=== PATIENT | female | born 1940 | race Caucasian/White ===

== ENCOUNTER → 2016-11-04 | Outpatient (CLI) | payer MEDICARE, BC ==
--- NOTE | 2016-11-04 14:03 | RAD ---
EXAM: Dual energy x-ray absorptiometry (DEXA). HISTORY: Post menopausal screening. TECHNIQUE: Dual energy x-ray absorptiometry of the lumbar spine and right hip was performed. Calculation of bone mineral density based on standard deviations above or below the expected young adult normal value (T-score) was completed. FINDINGS: The average bone mineral density associated with L1-L4 is 1.159 g/cm^2, corresponding with a T-score of -0.3. The average total bone mineral density associated with the right hip is 1.260 g/cm^2, corresponding with a T-score of 2.1. No comparison examinations are available. IMPRESSION: 1. Normal. Fracture risk is low. Note: Definitions established by the World Health Organization: 1. Normal: T-score is -1.0 or above the expected mean for a young adult. 2. Osteopenia: T-score is between -1.0 and -2.5. 3. Osteoporosis: T-score is -2.5 or below.
== END | disposition home or self-care (01) ==
LOC: DXRAD 13:18
PROVIDERS: ATTEND Physician Assistant Medical
DX: Z01.419 Encounter for gynecological examination (general) (routine) without abnormal findings (principal); Z78.0 Asymptomatic menopausal state
CPT/HCPCS: 77080

== ENCOUNTER → 2019-01-04 | Outpatient (CLI) | payer MEDICARE, BC ==
[~2019-01-04] MED LIST: HYOS0.1264 PO; ONDA4TAB7 PO
--- NOTE | 2019-01-04 16:15 | RAD ---
EXAM: Frontal view of the chest, AP views of the abdomen in upright and supine positions. CLINICAL INDICATION: Abdominal pain, left upper quadrant COMPARISON: None. FINDINGS and IMPRESSION: The heart is not enlarged. Mediastinal and hilar contours are normal. Aorta is tortuous. No focal parenchymal airspace opacity. No pleural effusion or pneumothorax. No abnormal small or large bowel dilatation. Moderate colonic stool content. No abnormal soft tissue mass effect. No suspicious calcifications are seen. No free intraperitoneal gas. Lumbar scoliosis. Atherosclerotic vascular calcifications are seen. Electronically signed by: Francisco Moreira MD (01/04/2019 4:12 PM) [facility]
== END | disposition home or self-care (01) ==
LOC: EDBD 08:29 → PMG 08:29
PROVIDERS: ATTEND Physician Assistant
DX: R10.12 Left upper quadrant pain (principal); M41.86 Other forms of scoliosis, lumbar region; I70.90 Unspecified atherosclerosis
CPT/HCPCS: 74022

== ENCOUNTER 2019-01-06 10:19 | Emergency (ER) | payer MEDICARE, BC ==
[2019-01-06] MEDS ORDERED: IV NORMAL SALINE 1,000ML 1,000 ML IV SCH (10:34)
[2019-01-06 10:35] VITALS: BP 145/78
--- NOTE | 2019-01-06 10:44 | PHYS DOC ---
Past History Past Medical History: High Cholesterol, Hypertension Past Surgical History: Hysterectomy, Other Additional Past Surgical Histo: vincent fundoplication Smoking: Non-smoker Alcohol Use: None Drug Use: None Adult General Chief Complaint Chief Complaint: NAUSEA/VOMITING/DIARRHEA HPI HPI Patient is a 78-year-old female that has been unable to tolerate any oral intake for the past 6 days. This includes both solids and liquids. She denies any diarrhea. She had a bowel movement last night as well as 6 days ago. No intervening bowel movements. No blood in the stool. No recent travel. No fever. She was seen 2 days ago by her primary care team and had an x-ray performed of her abdomen that was negative. Oral intake make symptoms worse.[] Review of Systems Review of Systems Constitutional: Denies fever or chills [] Eyes: Denies change in visual acuity, redness, or eye pain [] HENT: Denies nasal congestion or sore throat [] Respiratory: Denies cough or shortness of breath [] Cardiovascular: No chest pain or palpitations[] GI: See history of present illness[] : Denies dysuria or hematuria [] Musculoskeletal: Denies back pain or joint pain [] Integument: Denies rash or skin lesions [] Neurologic: Denies headache, focal weakness or sensory changes [] Endocrine: Denies polyuria or polydipsia [] All other systems were reviewed and found to be within normal limits, except as documented in this note. Allergies Allergies Allergies Coded Allergies Type Severity Reaction Last Updated Verified propoxyphene Allergy Unknown 01/06/19 Yes Physical Exam Physical Exam Constitutional: Well developed, well nourished, no acute distress, non-toxic appearance. [] HENT: Normocephalic, atraumatic, bilateral external ears normal, oropharynx moist, no oral exudates, nose normal. [] Eyes: PERRLA, EOMI, conjunctiva normal, no discharge. [] Neck: Normal range of motion, no tenderness, supple, no stridor. [] Cardiovascular:Heart rate regular rhythm, no murmur [] Lungs & Thorax: Bilateral breath sounds clear to auscultation [] Abdomen: Bowel sounds normal, soft, no tenderness, no masses, no pulsatile masses. [] Skin: Warm, dry, no erythema, no rash. [] Back: No tenderness, no CVA tenderness. [] Extremities: No tenderness, no cyanosis, no clubbing, ROM intact, no edema. [] Neurologic: Alert and oriented X 3, normal motor function, normal sensory function, no focal deficits noted. [] Psychologic: Affect normal, judgement normal, mood normal. [] EKG EKG [] Radiology/Procedures Radiology/Procedures PROCEDURE: CT ABD PELV W/ORAL&IV CONTRAST PQRS Compliance statement: One or more of the following individualized dose reduction techniques were utilized for this examination: 1. Automated exposure control. 2. Adjustment of the mA and/or kV according to patient size. 3. Use of iterative reconstruction technique. Indication:Vomiting. TECHNIQUE: CT abdomen and pelvis with IV contrast with multiplanar reformats. COMPARISON: None FINDINGS: Heart is normal in size. No pericardial or pleural effusion. Clear lung bases. Liver, spleen, gallbladder, pancreas, adrenals within normal limits with bilateral simple renal cysts, the right side measuring 4 cm and on the left side measuring 6.3 cm. 2 mm nonobstructing stone in the right kidney. No enlarged retroperitoneal or pelvic adenopathy. No free pelvic fluid or ascites. Moderate-sized sliding hiatal hernia. No evidence of gastric outlet obstruction. Scattered sigmoid diverticulosis. Normal appendix. Status post hysterectomy. Urinary bladder demonstrates no radiopaque stone. No pneumoperitoneum. Mild superior endplate compression deformity of the L2 vertebral body, age indeterminate.. No suspicious bony lesion. IMPRESSION: 1. Moderate sliding hiatal hernia. 2. Nonobstructing right renal stone.[] Course & Med Decision Making Course & Med Decision Making Pertinent Labs and Imaging studies reviewed. (See chart for details) ED course: Patient arrived, was placed in bed, and tolerated exam well. IV access was established and she was given IV fluids and antiemetics. She was able to tolerate oral contrast as well as subsequent water. She was transported to and from CT with any complications. After the return of laboratory and CT findings, these were discussed with the patient voiced understanding. All ques tions were answered. She was discharged in improved condition. Medical decision making: Patient with nausea and vomiting, it is not intractable. No evidence of obstruction or perforation. No evidence of significant electrolyte abnormality. No urinary tract infection. No evidence of surgical pathology.[] Dragon Disclaimer Dragon Disclaimer This electronic medical record was generated, in whole or in part, using a voice recognition dictation system. Departure Departure: Impression: Primary Impression: Nausea and vomiting Disposition: 01 HOME, SELF-CARE Condition: IMPROVED Referrals: NATA HINDS (PCP) Follow-up in 2 days Patient Instructions: Nausea and Vomiting Additional Instructions: Drink plenty of fluids, frequent small sips. No fatty foods, no milk, and no pepper for the next 48 hours. For the next 48 hours eat a diet rich in carbohydrates with foods such as bananas, rice, applesauce, and toast. Follow-up with your regular doctor in 2 days. Return to the ER if worsening pain, unable to tolerate liquids, blood in the emesis or stool, or any other concerns. Scripts Ondansetron Hcl (ZOFRAN) 4 Mg Tablet 1 TAB PO Q6HRS for nausea or vomiting, #20 TAB Prov: LISA LORENZANA DO 01/06/19 Hyoscyamine Sulfate (LEVSIN) 0.125 Mg Tablet 0.125 MG PO QID for abdominal pain/cramping, #30 TAB Prov: LISA LORENZANA DO 01/06/19 Problem Qualifiers Primary Impression: Nausea and vomiting Vomiting type: unspecified Vomiting Intractability: non-intractable Qualified Codes: R11.2 - Nausea with vomiting, unspecified LISA LORENZANA DO Jan 06, 2019 10:44
[2019-01-06] MEDS ORDERED: IOHEXOL 240 MG/ML 50ML VIAL. ONE (10:45)
[2019-01-06] MEDS ORDERED: HYOSCYAMINE 0.125 MG TAB.RAPDIS PO ONE (11:00)
[2019-01-06] MEDS ORDERED: ONDANSETRON PF 4 MG/2 ML VIAL. IV ONE (11:00)
[2019-01-06 11:22] LABS: BASO # 0.1 x10^3/uL (0.0-0.2); BASO % 1 % (0-3); EOS % 0 % (0-3); HEMATOCRIT 51.5 % (36.0-47.0); LYMPH # 1.4 x10^3/uL (1.0-4.8); LYMPH % 18 % (24-48); MEAN CORPUSCULAR HEMOGLOBIN 31 pg (25-35); MEAN CORPUSCULAR HGB CONC 33 g/dL (31-37); MEAN CORPUSCULAR VOLUME 93 fL (79-100); MONO # 0.9 x10^3/uL (0.0-1.1); MONO % 12 % (0-9); NEUT # 5.1 x10^3uL (1.8-7.7); NEUT % 69 % (31-73); PLATELET COUNT 264 x10^3/uL (140-400); RED BLOOD COUNT 5.53 x10^6/uL (3.50-5.40); RED CELL DISTRIBUTION WIDTH 13.7 % (11.5-14.5); WHITE BLOOD COUNT 7.5 x10^3/uL (4.0-11.0)
[2019-01-06 11:32] LABS: ALBUMIN/GLOBULIN RATIO 1.2 (1.0-1.7); CALCIUM 10.5 mg/dL (8.5-10.1); GFR 53.6; POTASSIUM 3.7 mmol/L (3.5-5.1); TOTAL BILIRUBIN 0.6 mg/dL (0.2-1.0); TOTAL PROTEIN 7.3 g/dL (6.4-8.2)
[2019-01-06] MEDS ORDERED: IOHEXOL 240 MG/ML 50ML VIAL. PO ONE (12:30)
[2019-01-06] MEDS ORDERED: IOHEXOL 300 MG/ML 75 ML VIAL. IV ONE (12:30)
--- NOTE | 2019-01-06 12:34 | RAD ---
PQRS Compliance statement: One or more of the following individualized dose reduction techniques were utilized for this examination: 1. Automated exposure control. 2. Adjustment of the mA and/or kV according to patient size. 3. Use of iterative reconstruction technique. Indication:Vomiting. TECHNIQUE: CT abdomen and pelvis with IV contrast with multiplanar reformats. COMPARISON: None FINDINGS: Heart is normal in size. No pericardial or pleural effusion. Clear lung bases. Liver, spleen, gallbladder, pancreas, adrenals within normal limits with bilateral simple renal cysts, the right side measuring 4 cm and on the left side measuring 6.3 cm. 2 mm nonobstructing stone in the right kidney. No enlarged retroperitoneal or pelvic adenopathy. No free pelvic fluid or ascites. Moderate-sized sliding hiatal hernia. No evidence of gastric outlet obstruction. Scattered sigmoid diverticulosis. Normal appendix. Status post hysterectomy. Urinary bladder demonstrates no radiopaque stone. No pneumoperitoneum. Mild superior endplate compression deformity of the L2 vertebral body, age indeterminate.. No suspicious bony lesion. IMPRESSION: 1. Moderate sliding hiatal hernia. 2. Nonobstructing right renal stone. Electronically signed by: Sonny Hearn DO (01/06/2019 12:32 PM) [facility]
[2019-01-06 13:09] LABS: BILIRUBIN,URINE NEG (NEG); CLARITY,URINE HAZY; COLOR,URINE AMBER; GLUCOSE,URINE NEG (NEG); NITRITE,URINE NEG (NEG); UROBILINOGEN,URINE 0.2 mg/dL (0.2 mg/dL)
[2019-01-06 13:10] LABS: BACTERIA,URINE MOD /HPF (0-FEW); HYALINE CASTS, URINE FEW /HPF; RBC,URINE OCC /HPF (0-2); SQUAMOUS EPITHELIAL CELL,UR MOD /LPF
[2019-01-06] MEDS ORDERED: ONDA4TAB7 PO (13:21)
[2019-01-06] MEDS ORDERED: HYOS0.1264 PO (13:21)
--- NOTE | 2019-01-06 16:03 | EKG ---
[address] [address] Test Date: 2019-01-06 Test Time: 11:05:04 Pat Name: MITALI STEWART Department: Room: Gender: F Nursing Officer: : 1940 Requested By: LISA LORENZANA Order Number: [id number] Reading MD: Measurements Intervals Collins Rate: 91 P: 22 MD: 142 QRS: -29 QRSD: 92 T: -13 QT: 358 QTc: 442 Interpretive Statements SINUS ARRHYTHMIA LEFTWARD AXIS R-S TRANSITION ZONE IN V LEADS DISPLACED TO THE LEFT NO SPECIFIC ECG ABNORMALITIES RI6.01 No previous ECG available for comparison
== END 2019-01-06 13:26 | disposition home or self-care (01) ==
LOC: ER 10:19
DX: R11.2 Nausea with vomiting, unspecified (principal); K44.9 Diaphragmatic hernia without obstruction or gangrene; N20.0 Calculus of kidney; E78.00 Pure hypercholesterolemia, unspecified; I10 Essential (primary) hypertension; Z90.710 Acquired absence of both cervix and uterus; Z88.8 Allergy status to other drugs, medicaments and biological substances
CPT/HCPCS: 36415; 74177; 80053; 81001; 83690; 84484; 85025; 87086; 93005; 96361; 96374; 99285; J2405; Q9966; Q9967; J7030

== ENCOUNTER 2019-01-17 21:53 | Emergency (ER) | payer MEDICARE, BC ==
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
[2019-01-17] MEDS ORDERED: IV RINGERS SOLUTION,LACTATED 1,000 ML IV SCH (22:12)
--- NOTE | 2019-01-17 22:36 | RAD ---
Exam: CT head INDICATION: Neck and back and head pain. TECHNIQUE: Sequential axial images through the head were obtained without the administration of IV contrast. Comparisons: None FINDINGS: No focal parenchymal lesion or hemorrhage is identified. There is no midline shift or sulcal effacement. Hypodensities within the periventricular white matter. Cabrera-white distinction is preserved. The ventricular system is within normal limits without compression hydrocephalus. The basal cisterns are well maintained. The visualized portions of the paranasal sinuses and mastoid air cells are well-pneumatized. No acute fractures. IMPRESSION: Small vessel ischemic change in the periventricular white matter bilaterally which is technically age indeterminate. If there is persistent concerns for acute ischemia MRI would better evaluate. Exposure: One or more of the following in the visualized dose reduction techniques were utilized for this examination: 1. Automated exposure control 2. Adjustment of the MA and/or KV according to patient size Use of iterative of reconstructive technique FOR INTERNAL CODING PURPOSES Critical result: Findings discussed with PAUL CHEN at 01/17/2019 10:32 PM. RESULT CODE: (C) Electronically signed by: Kait Griggs MD (01/17/2019 10:33 PM) [facility]
--- NOTE | 2019-01-17 22:40 | EKG ---
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 Electronically Signed On 01-26-2019 16:30:33 CDT by Wilman Robles
[2019-01-17 22:45] LABS: BASO # 0.1 x10^3/uL (0.0-0.2); BASO % 1 % (0-3); EOS # 0.2 x10^3/uL (0.0-0.7); EOS % 4 % (0-3); HEMATOCRIT 43.1 % (36.0-47.0); HEMOGLOBIN 14.4 g/dL (12.0-15.5); LYMPH # 1.3 x10^3/uL (1.0-4.8); LYMPH % 22 % (24-48); MEAN CORPUSCULAR HEMOGLOBIN 32 pg (25-35); MEAN CORPUSCULAR HGB CONC 34 g/dL (31-37); MEAN CORPUSCULAR VOLUME 94 fL (79-100); MONO # 0.7 x10^3/uL (0.0-1.1); MONO % 12 % (0-9); NEUT # 3.6 x10^3uL (1.8-7.7); NEUT % 61 % (31-73); PLATELET COUNT 239 x10^3/uL (140-400); RED BLOOD COUNT 4.58 x10^6/uL (3.50-5.40); RED CELL DISTRIBUTION WIDTH 13.9 % (11.5-14.5)
[2019-01-17 23:00] LABS: ALBUMIN 3.6 g/dL (3.4-5.0); C REACTIVE PROTEIN 6.2 mg/L (0-3.3); CALCIUM 10.2 mg/dL (8.5-10.1); CREATININE 0.9 mg/dL (0.6-1.0); DIRECT BILIRUBIN 0.1 mg/dL (0.0-0.2); GFR 60.6; MAGNESIUM 1.9 mg/dL (1.8-2.4); POTASSIUM 3.8 mmol/L (3.5-5.1); TOTAL BILIRUBIN 0.3 mg/dL (0.2-1.0); TOTAL PROTEIN 6.9 g/dL (6.4-8.2)
--- NOTE | 2019-01-17 23:07 | RAD ---
PORTABLE CHEST 1V Clinical History: TIA Technique: AP view of the chest was obtained at 01/17/2019 10:11 PM. Comparison: None. Findings: The cardiomediastinal silhouette is normal. The pulmonary vasculature is normal. The lungs and pleural margins are clear. Impression: No evidence of an acute cardiopulmonary process. Electronically signed by: Hasmukh Almaguer III, MD (01/17/2019 11:04 PM) [facility]
[2019-01-17 23:56] LABS: SEDIMENTATION RATE 18 (0-25)
[2019-01-18 00:02] LABS: BARBITURATES NEG (NEG); BENZODIAZEPINES NEG (NEG); CANNABINOIDS NEG (NEG); COCAINE NEG (NEG); METHADONE NEG (NEG); OPIATES NEG (NEG); PHENCYCLIDINE NEG (NEG)
[2019-01-18 00:08] LABS: BILIRUBIN,URINE NEG (NEG); CLARITY,URINE CLEAR; COLOR,URINE YELLOW; GLUCOSE,URINE NEG (NEG)
[2019-01-18 00:09] LABS: BACTERIA,URINE 0 /HPF (0-FEW); NITRITE,URINE NEG (NEG); RBC,URINE 0 /HPF (0-2); SQUAMOUS EPITHELIAL CELL,UR FEW /LPF; UROBILINOGEN,URINE 1 mg/dL (0.2 mg/dL); WBC,URINE OCC /HPF (0-4)
[2019-01-18 00:13] LABS: AMPHETAMINE/METHAMPHETAMINE NEG (NEG)
[2019-01-18 00:53] VITALS: BP 164/83
== END 2019-01-18 01:41 | disposition short-term general hospital (02) ==
LOC: ER 21:53
DX: R47.01 Aphasia (principal); R51 Headache; I10 Essential (primary) hypertension; E78.00 Pure hypercholesterolemia, unspecified; R79.82 Elevated C-reactive protein (CRP); R79.1 Abnormal coagulation profile; M19.90 Unspecified osteoarthritis, unspecified site; Z86.73 Personal history of transient ischemic attack (TIA), and cerebral infarction without residual deficits; Z88.8 Allergy status to other drugs, medicaments and biological substances
CPT/HCPCS: 36415; 70450; 71045; 80048; 80076; 80307; 81001; 82550; 83735; 83880; 84443; 84484; 85025; 85379; 85610; 85651; 85730; 86140; 93005; 99285; J7120